=== PATIENT | female | born 1960 | race Caucasian/White ===

== ENCOUNTER 2019-09-26 09:15 | Emergency (ER) | payer MEDICAID, OTHER ==
[~2019-09-26] VITALS: Ht 160 cm; Wt 59.0 kg
[~2019-09-26 09:15] MED LIST: ACET-2619 GT; AMLO5TAB1 GT; EPOE10004 SUBQ; FLUO-387 GT; KEP500 PO; LORA0.5T6 GT; METO-251 GT; MULT-1181 GT; ONDA4TAB GT; RAMI10CA10 GT; ROB1 GT; VIC GT; [UNRECOGNIZED DRUG - CODE] GT; [UNRECOGNIZED DRUG - CODE] GT
--- NOTE | 2019-09-26 09:19 | NUR ---
Patient BIBA BLS from [facility], transferred to bed 8. RN evaluating patient at bedside.
[2019-09-26 09:21] VITALS: BP 127/44
--- NOTE | 2019-09-26 09:35 | NUR ---
DR. HARO AT BEDSIDE.
--- NOTE | 2019-09-26 09:38 | NUR ---
spoke with pt's nurse from [facility] to inquire pt os here? Sindi COLE stated pt's g-tube is ruptured
--- NOTE | 2019-09-26 10:12 | NUR ---
58 Y/F BIBA FROM [facility] FOR REPLACEMENT OF PEG TUBE TO G TUBE. PT AWAKE AND TRACING WITH EYES. PT NONVERBAL, RR EVEN AND UNLABORED ON ROOM AIR. LUNGS CLEAR, S1S2 PRESENT. ABDOMEN SOFT, BS PRESENT. PEG TUBING RUPTURED. VSS NKDA DNR- COMFORT MEASURES.
--- NOTE | 2019-09-26 10:13 | NUR ---
XR AT BEDSIDE.
--- NOTE | 2019-09-26 10:30 | NUR ---
30CC GATROGRAFIN PUSHED BY ME VIA G-TUBE, NO RESISTANCE
[2019-09-26 11:41] VITALS: BP 116/76
--- NOTE | 2019-09-26 11:42 | NUR ---
Patient discharged with v/s stable. Written and verbal after care instructions given and explained. Patient verbalized understanding. Ambulance Transport with to residential. All questions addressed prior to discharge.
== END 2019-09-26 11:42 ==
LOC: MED 09:15
DX: I10 Essential (primary) hypertension (principal); F03.90 Unspecified dementia, unspecified severity, without behavioral disturbance, psychotic disturbance, mood disturbance, and anxiety; Z46.59 Encounter for fitting and adjustment of other gastrointestinal appliance and device; Z98.890 Other specified postprocedural states; Z79.899 Other long term (current) drug therapy
CPT/HCPCS: 43762; 74240; 99284; Q0092

== ENCOUNTER 2022-12-08 20:11 | Emergency (ER) | payer OTHER ==
[~2022-12-08] VITALS: Ht 160 cm; Wt 52.2 kg
--- NOTE | 2022-12-08 20:30 | NUR ---
JOANNE OLIVASS TO BED #4
[2022-12-08 20:32] VITALS: BP 112/68
--- NOTE | 2022-12-08 20:40 | NUR ---
Pt is non verbal and has fece grimacing complaining of shoulder pain per EMT. Pt is from [facility]. she is DNR. he is contrcted.
--- NOTE | 2022-12-08 21:23 | NUR ---
X-Ray at bedside.
--- NOTE | 2022-12-08 22:50 | NUR ---
emt put the sling.
--- NOTE | 2022-12-08 23:00 | NUR ---
Patient appears to be resting comfortably in bed. pt seen with eyes closed. Respirations even and unlabored. Visible chest rise and fall noted.
--- NOTE | 2022-12-09 01:45 | NUR ---
Patient appears to be resting comfortably in bed. pt seen with eyes closed. Respirations even and unlabored. Visible chest rise and fall noted.
--- NOTE | 2022-12-09 03:58 | NUR ---
Patient appears to be resting comfortably in bed. pt seen with eyes closed. Respirations even and unlabored. Visible chest rise and fall noted.
--- NOTE | 2022-12-09 11:08 | NUR ---
REPORT GIVEN TO BRYAN COLE [place] [facility] [place]SP[place] AT THIS TIME. ETA 2-2:30PM.
--- NOTE | 2022-12-09 11:41 | NUR ---
Note mike in EDM - 12/09/22 at 1143 by [email or web address] Patient discharged with v/s stable. Written and verbal after care instructions given and explained. Patient alert, oriented and verbalized understanding of instructions. Ambulatory with steady gait. All questions addressed prior to discharge. ID band removed. Patient advised to follow up with PMD. Rx of DEXTRAN 70/HYPROMELLOSE(ARTIFICAL TEARS), ATIFICAL EYE LUB 15-83% OINTMENT, ZOFRAN ODT, DELTASONE, AND VALACYCLOVIR. given. Patient educated on indication of medication including possible reaction and side effects. Opportunity to ask questions provided and answered.
[2022-12-09 11:54] VITALS: BP 135/93
--- NOTE | 2022-12-09 11:55 | NUR ---
Patient discharged with v/s stable. Written and verbal after care instructions given and explained. Patient verbalized understanding. [facility] TRANSPORT to [facility]. All questions addressed prior to discharge. Advised to follow up with PMD. REPORT GIVE TO DOUGLAS MUIR AT [facility] [place]
== END 2022-12-09 11:54 ==
LOC: MED 20:11
DX: S42.202A Unspecified fracture of upper end of left humerus, initial encounter for closed fracture (principal); I10 Essential (primary) hypertension; F03.90 Unspecified dementia, unspecified severity, without behavioral disturbance, psychotic disturbance, mood disturbance, and anxiety; I25.10 Atherosclerotic heart disease of native coronary artery without angina pectoris; Z86.69 Personal history of other diseases of the nervous system and sense organs; Z79.899 Other long term (current) drug therapy; Z79.891 Long term (current) use of opiate analgesic; X58.XXXA Exposure to other specified factors, initial encounter; Y92.129 Unspecified place in nursing home as the place of occurrence of the external cause; Y93.89 Activity, other specified; Y99.8 Other external cause status
CPT/HCPCS: 29105; 73030; 99285; Q0092